=== PATIENT | female | born 1985 | race African-American/Black ===

== ENCOUNTER 2018-11-27 23:42 | Emergency (ER) | payer SELFPAY ==
[2018-11-28 00:05] VITALS: TEMP 98.4; BMI 26.2
[2018-11-28] MEDS ORDERED: SODIUM CHLORIDE 1,000 ML IV STA ×2 (00:25→01:27)
[2018-11-28 00:53] LABS: BASO % 0.9 % (0-2.0); EOS % 0.4 % (0-4.5); HEMATOCRIT 37.4 % (32.4-45.2); HEMOGLOBIN 12.6 GM/dL (10.7-15.3); MCH 27.8 pg (25.7-33.7); MCHC 33.7 g/dl (32.0-36.0); MEAN CELL VOLUME 82.6 fl (80-96); MEAN PLT VOLUME 10.3 fl (7.5-11.1); MONO % 5.4 % (3.8-10.2); NEUT % 72.3 % (42.8-82.8); PLATELET COUNT 176 K/MM3 (134-434); RBC 4.53 M/mm3 (3.60-5.2); RDW 14.6 % (11.6-15.6); WHITE BLOOD COUNT 5.6 K/mm3 (4.0-10.0)
[2018-11-28 01:22] LABS: ALBUMIN 4.3 g/dl (3.4-5.0); ALK PHOS 36 U/L (45-117); ANION GAP 7 MMOL/L (8-16); BILIRUBIN,TOTAL < 0.1 mg/dL (0.2-1); BLOOD UREA NITROGEN 12.7 mg/dL (7-18); CALCIUM 9.2 mg/dL (8.5-10.1); CHLORIDE 111 mmol/L (98-107); CO2 25 mmol/L (21-32); CREATININE 1.1 mg/dL (0.55-1.3); GLUCOSE,RANDOM 93 mg/dL (74-106); POTASSIUM 3.9 mmol/L (3.5-5.1); SGOT/AST 8 U/L (15-37); SGPT/ALT 14 U/L (13-61); SODIUM 143 mmol/L (136-145); TOT PROT 7.6 g/dl (6.4-8.2)
[2018-11-28] MEDS ORDERED: METOCLOPRAMIDE HCL INJECTION 10 MG/2 ML VIAL IVPB ONE (01:27)
[2018-11-28] MEDS ORDERED: ACETAMINOPHEN 1000 MG/100 ML VIAL (NON FORMULARY) IVPB ONE (01:27)
--- NOTE | 2018-11-28 01:27 | PDOC ---
Documentation entered by Estefania Kirk SCRIBE, acting as scribe for Esteban Ricketts MD. Esteban Ricketts MD: This documentation has been prepared by the Yelena campos Sammi, SCRIBE, under my direction and personally reviewed by me in its entirety. I confirm that the documentation accurately reflects all work, treatment, procedures, and medical decision making performed by me. Attending Attestation - Resident Resident Name: Kenneth Schmidt - ED Attending Attestation I have performed the following: I have examined & evaluated the patient, The case was reviewed & discussed with the resident, I agree w/resident's findings & plan, Exceptions are as noted - HPI HPI: 11/28/18 01:18 The patient is a 33 year old female, with no significant PMH, who presents to the emergency department for syncopal episode. Pt states that she has been drinking all day. She started with having a few drinks at [employer]. Afterwards, she had a few more alcoholic drinks with her friend. Pt also smoked marijuana. Shortly after smoking, pt states that she felt very lightheaded. Pt subsequently lost consciousness for approx 4 minutes. She was caught by her friend before hitting the ground. The next thing she remembers is waking up on the ground. She denies any CP/SOB/palpitations preceding her syncopal episode. Denies any recent illness. Denies N/V/D. Denies abdominal pain. Pt endorses mild headache which she attributes to drinking. Pt's friend is with her and witnessed the episode. He states that she did not hit her head at any time. - Physicial Exam PE: 11/28/18 01:31 "GENERAL: Awake, alert, and fully oriented, in no acute distress. HEAD: No signs of trauma EYES: PERRLA, EOMI, sclera anicteric, conjunctiva clear ENT: Auricles normal inspection, hearing grossly normal, nares patent, oropharynx clear without exudates. Moist mucosa NECK: Nontender, no stepoffs, Normal ROM, supple, no lymphadenopathy, JVD, or masses LUNGS: Breath sounds equal, clear to auscultation bilaterally. No wheezes, and no crackles HEART: Regular rate and rhythm, normal S1 and S2, no murmurs, rubs or gallops ABDOMEN: Soft, nontender, normoactive bowel sounds. No guarding, no rebound. No masses EXTREMITIES: Normal range of motion, no edema. No clubbing or cyanosis. No cords, erythema, or tenderness NEUROLOGICAL: Cranial nerves II through XII intact. 5/5 strength and sensation in all extremities, Normal speech, normal gait, normal cerebellar function SKIN: Warm, Dry, normal turgor, no rashes or lesions noted. - Medical Decision Making 11/28/18 01:31 33 F with syncopal episode while drinking and smoking marijuana. Low suspicion for cardiac event. No evidence of arrhythmia or ischemia on EKG. Pt with mild headache but no evidence of traumatic injury on exam or history. - Labs, UPT - IVF, tylenol, reglan 11/28/18 01:40 Labs wnl Pt signed out to Dr. Gallego at 2am, pending medication, fluids, and re-evaluation
[2018-11-28] MEDS ORDERED: METOCLOPRAMIDE HCL INJECTION 10 MG/2 ML VIAL ONE (01:43)
[2018-11-28] MEDS ORDERED: ACETAMINOPHEN INJECTION 100 ML IVPB ONE (01:43)
--- NOTE | 2018-11-28 02:09 | PDOC ---
History of Present Illness - General Chief Complaint: Syncope/Near Syncope Stated Complaint: syncope Time Seen by Provider: 11/28/18 00:06 History Source: Patient - History of Present Illness Initial Comments: 11/28/18 02:04 33f with no pmh presents to the ED after feeling like passing out after drinking all day and smoking marijuana 1h before presentation. She states that while being tipsy she took two puffs of a joint and felt lightheaded, had to rest her head on boyfriend's shoulder, may have lost consciousness. Endorses some blurry vision and headache, usual when she's drunk. Uses contraceptive pill. . Denies chest pain, palpitation, sob, dysuria. Past History - Past Medical History Allergies/Adverse Reactions: Allergies Allergy/AdvReac Type Severity Reaction Status Date / Time No Known Allergies Allergy Verified 11/28/18 00:33 COPD: No - Suicide/Smoking/Psychosocial Hx Smoking History: Never smoked Hx Alcohol Use: Yes (social) Drug/Substance Use Hx: Yes (Marijuana) Review of Systems - Review of Systems Able to Perform ROS?: Yes Is the patient limited Indonesian proficient: No Constitutional: Yes: See HPI HEENTM: Yes: See HPI Respiratory: No: Symptoms reported Cardiac (ROS): No: Symptoms Reported ABD/GI: No: Symptoms Reported : No: Symptoms Reported Musculoskeletal: No: Symptoms Reported Integumentary: No: Symptoms Reported Neurological: No: Symptoms reported All Other Systems: Reviewed and Negative *Physical Exam - Vital Signs Last Vital Signs Temp Pulse Resp BP Pulse Ox 98.4 F 118 H 19 110/64 100 11/28/18 00:01 11/28/18 00:01 11/28/18 00:01 11/28/18 00:01 11/28/18 00:01 - Physical Exam General Appearance: Yes: Nourished, Intoxicated HEENT: positive: EOMI, PEACE, Normal ENT Inspection Respiratory/Chest: positive: Lungs Clear, Normal Breath Sounds. negative: Chest Tender, Respiratory Distress Cardiovascular: positive: Regular Rhythm, S1, S2, Tachycardia Gastrointestinal/Abdominal: positive: Normal Bowel Sounds, Flat, Soft. negative : Tender Musculoskeletal: positive: Normal Inspection. negative: CVA Tenderness Integumentary: positive: Normal Color, Dry, Warm Neurologic: positive: Alert, Normal Mood/Affect, Normal Response ED Treatment Course - LABORATORY CBC & Chemistry Diagram: 11/28/18 00:35 11/28/18 00:35 - ADDITIONAL ORDERS Additional order review: Laboratory Results 11/28/18 11/28/18 00:35 00:35 Sodium 143 Potassium 3.9 Chloride 111 H Carbon Dioxide 25 Anion Gap 7 L BUN 12.7 Creatinine 1.1 Est GFR (CKD-EPI)AfAm 75.86 Est GFR (CKD-EPI)NonAf 65.45 Random Glucose 93 Calcium 9.2 Total Bilirubin < 0.1 L AST 8 L ALT 14 Alkaline Phosphatase 36 L Total Protein 7.6 Albumin 4.3 Serum , Qual Negative 11/28/18 00:35 RBC 4.53 MCV 82.6 MCHC 33.7 RDW 14.6 MPV 10.3 Neutrophils % 72.3 Lymphocytes % 21.0 Monocytes % 5.4 Eosinophils % 0.4 Basophils % 0.9 - Medications Given in the ED: ED Medications Discontinued Medications Generic Name Dose Route Start Last Admin Trade Name Freq PRN Reason Stop Dose Admin Acetaminophen 1,000 mg 11/28/18 01:27 11/28/18 01:56 Ofirmev Injection - IVPB 11/28/18 01:28 1,000 mg ONCE ONE Administration Sodium Chloride 1,000 mls @ 1,000 mls/hr 11/28/18 00:25 11/28/18 00:50 Normal Saline - IV 11/28/18 01:24 1,000 mls/hr ASDIR STA Administration Metoclopramide HCl 10 mg 11/28/18 01:27 11/28/18 01:56 Reglan Injection - IVPB 11/28/18 01:28 10 mg ONCE ONE Administration Medical Decision Making - Medical Decision Making 11/28/18 02:09 33f with lightheaded after alcohol and cannabis usage. Will replenish fluids x2L, tylenol for headache, basic labs wnl Will recheck vitals and discharge home once sober *DC/Admit/Observation/Transfer Diagnosis at time of Disposition: Vasovagal episode - Discharge Dispostion Disposition: HOME Condition at time of disposition: Improved Decision to Admit order: No - Referrals - Patient Instructions Printed Discharge Instructions: DI for Syncope in Adults (Fainting) Additional Instructions: Come back to the emergency department for any new, worsening or concerning symptoms. - Post Discharge Activity
--- NOTE | 2018-11-28 03:02 | PDOC ---
*Physical Exam - Vital Signs Last Vital Signs Temp Pulse Resp BP Pulse Ox 98.4 F 100 H 18 99/50 L 97 11/28/18 00:01 11/28/18 02:14 11/28/18 02:14 11/28/18 02:14 11/28/18 02:14 ED Treatment Course - LABORATORY CBC & Chemistry Diagram: 11/28/18 00:35 11/28/18 00:35 - ADDITIONAL ORDERS Additional order review: Laboratory Results 11/28/18 11/28/18 00:35 00:35 Sodium 143 Potassium 3.9 Chloride 111 H Carbon Dioxide 25 Anion Gap 7 L BUN 12.7 Creatinine 1.1 Est GFR (CKD-EPI)AfAm 75.86 Est GFR (CKD-EPI)NonAf 65.45 Random Glucose 93 Calcium 9.2 Total Bilirubin < 0.1 L AST 8 L ALT 14 Alkaline Phosphatase 36 L Total Protein 7.6 Albumin 4.3 Serum , Qual Negative 11/28/18 00:35 RBC 4.53 MCV 82.6 MCHC 33.7 RDW 14.6 MPV 10.3 Neutrophils % 72.3 Lymphocytes % 21.0 Monocytes % 5.4 Eosinophils % 0.4 Basophils % 0.9 - Medications Given in the ED: ED Medications Discontinued Medications Generic Name Dose Route Start Last Admin Trade Name Freq PRN Reason Stop Dose Admin Acetaminophen 1,000 mg 11/28/18 01:27 11/28/18 01:56 Ofirmev Injection - IVPB 11/28/18 01:28 1,000 mg ONCE ONE Administration Sodium Chloride 1,000 mls @ 1,000 mls/hr 11/28/18 00:25 11/28/18 00:50 Normal Saline - IV 11/28/18 01:24 1,000 mls/hr ASDIR STA Administration Sodium Chloride 1,000 mls @ 1,000 mls/hr 11/28/18 01:27 11/28/18 01:55 Normal Saline - IV 11/28/18 02:26 1,000 mls/hr ASDIR STA Administration Metoclopramide HCl 10 mg 11/28/18 01:27 11/28/18 01:56 Reglan Injection - IVPB 11/28/18 01:28 10 mg ONCE ONE Administration Medical Decision Making - Medical Decision Making 11/28/18 03:00 Pt signed out to me. She had a syncopal episode after drinking chapagne x 7 glasses at [employer] today and then 2 cocktails.then smoked some pot tonight and passed out. She has done this in the past, but she never passed out, as per her significant other. However, she is refusing CT head at this time, as she has no insurance and she doesn't want to pay for it. *DC/Admit/Observation/Transfer Diagnosis at time of Disposition: Vasovagal episode - Discharge Dispostion Disposition: HOME Condition at time of disposition: Improved - Referrals - Patient Instructions Printed Discharge Instructions: DI for Syncope in Adults (Fainting) Additional Instructions: Come back to the emergency department for any new, worsening or concerning symptoms. - Post Discharge Activity
[2018-11-28 03:19] VITALS: BP 106/55; PULSE 93
--- NOTE | 2018-11-28 11:06 | EKG ---
Test Reason : Blood Pressure : / mmHG Vent. Rate : 101 BPM Atrial Rate : 101 BPM P-R Int : 218 ms QRS Dur : 072 ms QT Int : 336 ms P-R-T Axes : 051 073 037 degrees QTc Int : 435 ms SINUS TACHYCARDIA WITH 1ST DEGREE A-V BLOCK OTHERWISE NORMAL ECG NO PREVIOUS ECGS AVAILABLE Confirmed by LISA RUIZ, AB ([id number]) on 11/28/2018 11:06:16 AM Referred By: Confirmed By:AB GONZALEZ MD
== END 2018-11-28 03:30 | disposition home or self-care (01) ==
LOC: JER 23:42
PROC: 3E033NZ Introduction of Analgesics, Hypnotics, Sedatives into Peripheral Vein, Percutaneous Approach (ICD-10-PCS; principal; 2018-11-27)
PROC: 3E0337Z Introduction of Electrolytic and Water Balance Substance into Peripheral Vein, Percutaneous Approach (ICD-10-PCS; 2018-11-27)
PROC: 3E033GC Introduction of Other Therapeutic Substance into Peripheral Vein, Percutaneous Approach (ICD-10-PCS; 2018-11-27)
DX: R55 Syncope and collapse (principal)
CPT/HCPCS: 36415; 80053; 84703; 85025; 93005; 93010; 99283-25; J0131; J7030